=== PATIENT | female | born 1980 | race Caucasian/White ===

== ENCOUNTER → 2018-01-04 | Outpatient (CLI) | payer BC ==
--- NOTE | 2018-01-05 08:35 | MR ---
EXAMINATION TYPE: MR angio head wo con DATE OF EXAM: 01/04/2018 COMPARISON: None HISTORY: headaches CONTRAST: None TECHNIQUE: Multiplanar multiecho imaging on a 3.0 Carie magnet is performed through the qu[place] of Xavier lis. 3-D [id number] imaging is performed. Source images are reviewed on the computer in the axi al plane. Reconstructed images rotating on the computer are reviewed. FINDINGS: The internal carotid arteries bifurcate normally into A1 and M1 segments. The A2 segments are normal. Middle cerebral artery branches are normal. Anterior communicating artery is patent. The right posterior communicating artery is patent. The left posterior communicating artery is patent and terminates in the left posterior cerebral arter y. A small accessory left posterior cerebral artery also extends from the basilar artery. Vertebrobasilar arteries within the [id number] are normal. Posterior cerebral vasculature is norm al. No suspicious aneurysm or aneurysmal dilatation is evident. No obstructions are identified. No significant flow-limiting stenosis is evident. IMPRESSIONS: 1. NORMAL MRA [place] OF [place].
== END | disposition home or self-care (01) ==
LOC: RADMRIMAIN 20:39
PROVIDERS: ATTEND Psychiatry & Neurology Neurology
DX: I67.1 Cerebral aneurysm, nonruptured (principal)
CPT/HCPCS: 70544

== ENCOUNTER 2018-10-03 08:09 | Emergency (ER) | payer BC ==
[2018-10-03] MEDS ORDERED: SODIUM CHLORIDE 0.9% 1,000 ML IV STA (08:40)
[2018-10-03] MEDS ORDERED: DIPHENOX-ATROP 2.5-0.025 MG 1 EACH TAB PO STA (08:40)
[2018-10-03] MEDS ORDERED: KETOROLAC 30 MG/ML 1 ML VIAL IVP STA (08:44)
--- NOTE | 2018-10-03 08:48 | ED ---
General Adult HPI - General Chief complaint: Abdominal Pain Stated complaint: Stomach pain/diarrhea Time Seen by Provider: 10/03/18 08:15 Source: patient, RN notes reviewed Mode of arrival: ambulatory Limitations: no limitations - History of Present Illness Initial comments: This is a 37-year-old female presents emergency Department complaining of diarr hea for the last 5 days. Patient states she started having some abdominal upset last one taken on started having diarrhea. Patient states she has continued to have diarrhea through today. Patient states she thought it was starting to get better on Wednesday but symptoms progressed and she continues to have it again today. Patient states she has abdominal cramping but no specific area of abdominal pain. Patient states the cramping does come and go. Patient states she had a low-grade fever of 99 yesterday but has not taken her temperature today. Patient states she is not nauseated but has not vomited. Patient denies any chest pain or difficulty breathing. Patient states she star karina her period yesterday she does not think she is . Patient denies any recent antibiotic use. Patient denies any blood in the stool. Patient states yesterday she started having some lower back pain bilaterally. - Related Data Home Medications Medication Instructions Recorded Confirmed Cetirizine HCl [Zyrtec] 10 mg PO DAILY 10/03/18 10/03/18 Fluticasone Nasal [place] [Flonase 1 spray EA NOSTRIL DAILY PRN 10/03/18 10/03/18 Nasal [place]] Pimtrea 28 1 tab PO DAILY 10/03/18 10/03/18 Previous Rx's Medication Instructions Recorded Diphenox-Atrop 2.5-0.025 mg 2 tab PO QID PRN 3 Days #24 tab 10/03/18 [Lomotil] Allergies Allergy/AdvReac Type Severity Reaction Status Date / Time No Known Allergies Allergy Verified 10/03/18 09:34 Review of Systems ROS Statement: Those systems with pertinent positive or pertinent negative responses have been documented in the HPI. ROS Other: All systems not noted in ROS Statement are negative. Past Medical History Additional Past Medical History / Comment(s): allergies History of Any Multi-Drug Resistant Organisms: None Reported Past Surgical History: Section Past Psychological History: No Psychological Hx Reported Smoking Status: Never smoker Past Alcohol Use History: Occasional Past Drug Use History: None Reported General Exam - General Exam Comments Initial Comments: GENERAL: Patient is well-developed and well-nourished. Patient is nontoxic and well- hydrated and is in mild distress. ENT: Neck is soft and supple. No significant lymphadenopathy is noted. Oropharynx is clear. Moist mucous membranes. Neck has full range of motion without eliciting any pain. EYES: The sclera were anicteric and conjunctiva were pink and moist. Extraocular movements were intact and pupils were equal round and reactive to light. Eyelids were unremarkable. PULMONARY: Unlabored respirations. Good breath sounds bilaterally. No audible rales rhonchi or wheezing was noted. CARDIOVASCULAR: There is a regular rate and rhythm without any murmurs gallops or rubs. ABDOMEN: Soft and nontender with normal bowel sounds. No palpable organomegaly was noted. There is no palpable pulsatile mass. SKIN: Skin is clear with no lesions or rashes and otherwise unremarkable. NEUROLOGIC: Patient is alert and oriented x3. Cranial nerves II through XII are grossly intact. Motor and sensory are also intact. Normal speech, volume and content. Symmetrical smile. MUSCULOSKELETAL: Normal extremities with adequate strength and full range of motion. LYMPHATICS: No significant lymphadenopathy is noted PSYCHIATRIC: Normal psychiatric evaluation. Limitations: no limitations Course Vital Signs 10/03/18 08:16 Temperature 98.7 F Pulse Rate 116 H Respiratory 18 Rate Blood Pressure 112/74 O2 Sat by Pulse 100 Oximetry Medical Decision Making - Medical Decision Making Patient had no diarrhea while in the emergency department. Patient was able to eat some food in the emergency department with no problem. Patient stated she felt considerably better. - Lab Data Result diagrams: 10/03/18 08:50 10/03/18 08:54 Lab Results 10/03/18 10/03/18 10/03/18 Range/Units 08:50 08:54 10:30 WBC 7.0 (3.8-10.6) k/uL RBC 4.27 (3.80-5.40) m/uL Hgb 13.6 (11.4-16.0) gm/dL Hct 39.4 (34.0-46.0) % MCV 92.4 (80.0-100.0) fL MCH 31.9 (25.0-35.0) pg MCHC 34.6 (31.0-37.0) g/dL RDW 12.3 (11.5-15.5) % Plt Count 224 (150-450) k/uL Neutrophils % 82 % Lymphocytes % 7 % Monocytes % 8 % Eosinophils % 1 % Basophils % 0 % Neutrophils # 5.8 (1.3-7.7) k/uL Lymphocytes # 0.5 L (1.0-4.8) k/uL Monocytes # 0.6 (0-1.0) k/uL Eosinophils # 0.1 (0-0.7) k/uL Basophils # 0.0 (0-0.2) k/uL Hyperchromasia Slight Sodium 140 (137-145) mmol/L Potassium 3.6 (3.5-5.1) mmol/L Chloride 106 (98-107) mmol/L Carbon Dioxide 28 (22-30) mmol/L Anion Gap 6 mmol/L BUN 12 (7-17) mg/dL Creatinine 0.73 (0.52-1.04) mg/dL Est GFR (CKD-EPI)AfAm >90 (>60 ml/min/1.73 sqM) Est GFR (CKD-EPI)NonAf >90 (>60 ml/min/1.73 sqM) Glucose 95 (74-99) mg/dL Calcium 9.4 (8.4-10.2) mg/dL Total Bilirubin 0.8 (0.2-1.3) mg/dL AST 18 (14-36) U/L ALT 19 (9-52) U/L Alkaline Phosphatase 46 (38-126) U/L Total Protein 6.3 (6.3-8.2) g/dL Albumin 3.9 (3.5-5.0) g/dL Amylase 64 (30-110) U/L Lipase 240 (23-300) U/L Urine Color Yellow Urine Appearance Clear (Clear) Urine pH 6.0 (5.0-8.0) Ur Specific [place] 1.020 (1.001-1.035) Urine Protein Trace H (Negative) Urine Glucose (UA) Negative (Negative) Urine Ketones Negative (Negative) Urine Blood Trace H (Negative) Urine Nitrite Negative (Negative) Urine Bilirubin Negative (Negative) Urine Urobilinogen <2.0 (<2.0) mg/dL Ur Leukocyte Esterase Negative (Negative) Urine RBC 1 (0-5) /hpf Urine WBC <1 (0-5) /hpf Ur Squamous Epith Cells 1 (0-4) /hpf Urine Mucus Moderate H (None) /hpf Urine HCG, Qual (Not Detectd) 10/03/18 Range/Units 10:30 WBC (3.8-10.6) k/uL RBC (3.80-5.40) m/uL Hgb (11.4-16.0) gm/dL Hct (34.0-46.0) % MCV (80.0-100.0) fL MCH (25.0-35.0) pg MCHC (31.0-37.0) g/dL RDW (11.5-15.5) % Plt Count (150-450) k/uL Neutrophils % % Lymphocytes % % Monocytes % % Eosinophils % % Basophils % % Neutrophils # (1.3-7.7) k/uL Lymphocytes # (1.0-4.8) k/uL Monocytes # (0-1.0) k/uL Eosinophils # (0-0.7) k/uL Basophils # (0-0.2) k/uL Hyperchromasia Sodium (137-145) mmol/L Potassium (3.5-5.1) mmol/L Chloride (98-107) mmol/L Carbon Dioxide (22-30) mmol/L Anion Gap mmol/L BUN (7-17) mg/dL Creatinine (0.52-1.04) mg/dL Est GFR (CKD-EPI)AfAm (>60 ml/min/1.73 sqM) Est GFR (CKD-EPI)NonAf (>60 ml/min/1.73 sqM) Glucose (74-99) mg/dL Calcium (8.4-10.2) mg/dL Total Bilirubin (0.2-1.3) mg/dL AST (14-36) U/L ALT (9-52) U/L Alkaline Phosphatase (38-126) U/L Total Protein (6.3-8.2) g/dL Albumin (3.5-5.0) g/dL Amylase (30-110) U/L Lipase (23-300) U/L Urine Color Urine Appearance (Clear) Urine pH (5.0-8.0) Ur Specific [place] (1.001-1.035) Urine Protein (Negative) Urine Glucose (UA) (Negative) Urine Ketones (Negative) Urine Blood (Negative) Urine Nitrite (Negative) Urine Bilirubin (Negative) Urine Urobilinogen (<2.0) mg/dL Ur Leukocyte Esterase (Negative) Urine RBC (0-5) /hpf Urine WBC (0-5) /hpf Ur Squamous Epith Cells (0-4) /hpf Urine Mucus (None) /hpf Urine HCG, Qual Not Detected (Not Detectd) Disposition Clinical Impression: Acute diarrhea Disposition: HOME SELF-CARE Condition: Good Instructions (If sedation given, give patient instructions): Acute Diarrhea (ED) Prescriptions: Diphenox-Atrop 2.5-0.025 mg [Lomotil] 2 tab PO QID PRN 3 Days #24 tab PRN Reason: Diarrhea Is patient prescribed a controlled substance at d/c from ED?: No Referrals: None,Stated [Primary Care Provider] - 1-2 days Time of Disposition: 10:51
[2018-10-03 09:15] LABS: ALT 19 U/L (9-52); AST 18 U/L (14-36); Albumin 3.9 g/dL (3.5-5.0); Alkaline Phosphatase 46 U/L (38-126); Amylase 64 U/L (30-110); Anion Gap 6 mmol/L; Blood Urea Nitrogen 12 mg/dL (7-17); Calcium 9.4 mg/dL (8.4-10.2); Carbon Dioxide 28 mmol/L (22-30); Chloride 106 mmol/L (98-107); Glucose 95 mg/dL (74-99); Lipase 240 U/L (23-300); Sodium 140 mmol/L (137-145); Total Bilirubin 0.8 mg/dL (0.2-1.3); Total Protein 6.3 g/dL (6.3-8.2)
[2018-10-03 09:25] LABS: Basophils % (A) 0 %; Eosinophils # (A) 0.1 k/uL (0-0.7); Eosinophils % (A) 1 %; HCT 39.4 % (34.0-46.0); HGB 13.6 gm/dL (11.4-16.0); Hyperchromasia Slight; Lymphocytes # (A) 0.5 k/uL (1.0-4.8); Lymphocytes % (A) 7 %; MCH 31.9 pg (25.0-35.0); MCHC 34.6 g/dL (31.0-37.0); MCV 92.4 fL (80.0-100.0); Mean Platelet Volume 6.8; Monocytes # (A) 0.6 k/uL (0-1.0); Monocytes % (A) 8 %; Neutrophils # (A) 5.8 k/uL (1.3-7.7); Neutrophils % (A) 82 %; Platelet Count 224 k/uL (150-450); RBC 4.27 m/uL (3.80-5.40); RDW 12.3 % (11.5-15.5)
[2018-10-03 09:32] LABS: Potassium 3.6 mmol/L (3.5-5.1)
[2018-10-03 10:39] LABS: Appearance,Urine Clear (Clear); Bilirubin,Urine Negative (Negative); Blood,Urine Trace (Negative); Color,Urine Yellow; Glucose,Urine (UA) Negative (Negative); Ketones,Urine Negative (Negative); Leukocyte Esterase,Urine Negative (Negative); Mucus,Urine Moderate /hpf; Nitrite,Urine Negative (Negative); Protein,Urine Trace (Negative); RBC,Urine 1 /hpf (0-5); Squamous Epithelial Cell,Urine 1 /hpf (0-4); Urobilinogen,Urine <2.0 mg/dL (<2.0); WBC,Urine <1 /hpf (0-5)
[2018-10-03 11:18] VITALS: BP 97/66; PULSE 94; RESP 16; TEMP 98.8
== END 2018-10-03 11:30 | disposition home or self-care (01) ==
LOC: EC 08:09
DX: R19.7 Diarrhea, unspecified (principal); R10.9 Unspecified abdominal pain; Z79.3 Long term (current) use of hormonal contraceptives; Z79.899 Other long term (current) drug therapy
CPT/HCPCS: 36415; 80053; 82150; 83690; 85025; 81001; 81025; 99284; 96374; 96361 ×2; J1885

== ENCOUNTER → 2021-04-02 | Outpatient (CLI) | payer BC ==
--- NOTE | 2021-04-07 12:01 | MM ---
Reason for exam: screening (asymptomatic). History: Taking hormonal contraceptives beginning at age 18. Physical Findings: A clinical breast exam by your physician is recommended on an annual basis and results should be correlated with mammographic findings. MG 3D Screening Mammo W/Cad Bilateral CC and MLO view(s) were taken. The breast tissue is heterogeneously dense. This may lower the sensitivity of mammography. Oval circumscribed nodule posterior upper outer quadrant likely intramammary lymph node, 6 month follow up recommended. ASSESSMENT: Probably benign, BI-RAD 3 RECOMMENDATION: Follow-up diagnostic mammogram of the left breast in 6 months.
== END | disposition home or self-care (01) ==
LOC: RADMAMWWP 07:30
PROVIDERS: ATTEND Obstetrics & Gynecology
DX: Z12.31 Encounter for screening mammogram for malignant neoplasm of breast (principal)
CPT/HCPCS: 77063; 77067

== ENCOUNTER → 2021-10-01 | Outpatient (CLI) | payer BC ==
--- NOTE | 2021-10-01 16:36 | MM ---
Reason for Exam: Follow-up at short interval from prior study. Last screening mammogram was performed 6 month(s) ago. Patient History: Menarche at age 15. First Full-Term at age 28. Currently using Hormonal Contraceptives, starting at age 18. Last menstrual period: 10/01/2021 Risk Values: Sammie 5 year model risk: 0.5%. NCI Lifetime model risk: 11.2%. Film Views: Left CC views were taken. Left MLO views were taken. Prior Study Comparison: 04/02/2021 Bilateral Screening Mammogram, [facility]. Tissue Density: Left: The breast tissue is heterogeneously dense. This may lower the sensitivity of mammography. Findings: Analyzed By CAD. There is a stable oval density in the upper outer aspect left breast which may be related to an intramammary lymph node. Finding is unchanged in comparison. No new spiculated or lobular masses clusters of microcalcifications or architectural distortion are evident. Overall Assessment: Benign, BI-RAD 2 Management: Screening Mammogram of both breasts at age 42. A clinical breast exam by your physician is recommended on an annual basis and results should be correlated with mammographic findings. This exam should not preclude additional follow-up of suspicious palpable abnormalities. Results were given to the patient verbally at the time of exam. Electronically signed and approved by: Jerome Kwok D.O. Radiologis
== END | disposition home or self-care (01) ==
LOC: RADMAMWWP 07:04
PROVIDERS: ATTEND Obstetrics & Gynecology
DX: R92.8 Other abnormal and inconclusive findings on diagnostic imaging of breast (principal)
CPT/HCPCS: 77061; 77065

== ENCOUNTER → 2022-12-28 | Outpatient (CLI) | payer BC ==
--- NOTE | 2022-12-29 08:27 | MM ---
Reason for Exam: Screening (asymptomatic). Last mammogram was performed 1 year(s) and 9 month(s) ago. Patient History: Menarche at age 15. First Full-Term at age 28. Patient has history of breast feeding. Currently using Hormonal Contraceptives, starting at age 18. Last menstrual period: 12/21/2022 Risk Values: Sammie 5 year model risk: 0.6%. NCI Lifetime model risk: 11.1%. Prior Study Comparison: 04/02/2021 Bilateral Screening Mammogram, [facility]. 10/01/2021 Left MG 3D diag mammo w/cad LT, [facility]. Tissue Density: The breast tissue is heterogeneously dense. This may lower the sensitivity of mammography. Findings: Analyzed By CAD. There is no suspicious group of microcalcifications or new suspicious mass in either breast. Stable chronic nodularity in the left breast. Overall Assessment: Benign, BI-RAD 2 Management: Screening Mammogram of both breasts in 1 year. A clinical breast exam by your physician is recommended on an annual basis and results should be correlated with mammographic findings. Note on Sammie scores and lifetime risk: 1. A Sammie score greater than 3% is considered moderate risk. If this is the case, consider specialist referral to assess eligibility for a risk reducing agent. If overall lifetime risk for the development of breast cancer is 20% or higher, the patient may qualify for future screening with alternating mammogram and breast MRI. Electronically signed and approved by: Krystian Bernard D.O.
== END | disposition home or self-care (01) ==
LOC: RADMAMWWP 15:07
PROVIDERS: ATTEND Obstetrics & Gynecology
DX: Z12.31 Encounter for screening mammogram for malignant neoplasm of breast (principal)
CPT/HCPCS: 77063; 77067